=== PATIENT | male | born 1960 | race Caucasian/White ===

== ENCOUNTER 2018-06-28 02:41 | Emergency (ER) | payer SELFPAY ==
[2018-06-28 02:42] VITALS: PULSE 98
--- NOTE | 2018-06-28 04:11 | ED PDOC ---
Lower Extremity Pain/Injury Time Seen by Provider: 06/28/18 03:02 Chief Complaint (Nursing): Lower Extremity Problem/Injury Chief Complaint (Provider): knee pain History Per: Patient History/Exam Limitations: no limitations Onset/Duration Of Symptoms: Days Current Symptoms Are (Timing): Still Present Additional Complaint(s): 57 y/o male brought in by EMS for evaluation of bilateral knee pain. 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 Denies new injury, numbness/weakness lower extremities, limitation of movement. No medication taken for relief today Past Medical History Reviewed: Historical Data, Nursing Documentation, Vital Signs Vital Signs: Last Vital Signs Temp 98.3 F 06/28/18 02:44 Pulse 57 L 06/28/18 02:44 Resp 17 06/28/18 02:44 BP 103/72 06/28/18 02:44 Pulse Ox 95 06/28/18 02:44 - Medical History PMH: Arthritis, Diabetes, HTN Denies: Atrial Fibrillation, Chronic Kidney Disease - Family History Family History: States: Unknown Family Hx - Immunization History Hx Tetanus Toxoid Vaccination: No Hx Influenza Vaccination: No Hx Pneumococcal Vaccination: No - Home Medications Home Medications: Ambulatory Orders Medication Instructions Recorded Glipizide 2.5 mg PO BID 02/05/14 Lisinopril 2.5 mg PO DAILY 02/05/14 Metformin 1,000 mg PO BID 02/05/14 Metoprolol 12.5 mg PO DAILY 02/05/14 Amiodarone [Cordarone] 200 mg PO BID #60 tab 05/13/14 Diltiazem Hydrochloride [Cardizem 240 mg PO DAILY #30 c24 05/13/14 Cd] Omeprazole 40 mg PO DAILY #30 ecc 05/13/14 traMADol/Acetaminophen [Ultracet 1 tab PO Q6H PRN #60 tab 05/13/14 325 MG-37.5 MG] Ibuprofen [Motrin Tab] 1 tab PO Q6 PRN #20 tab 06/28/18 - Allergies Allergies/Adverse Reactions: Allergies Allergy/AdvReac Type Severity Reaction Status Date / Time No Known Allergies Allergy Verified 06/28/18 02:46 Review of Systems ROS Statement: Except As Marked, All Systems Reviewed And Found Negative Musculoskeletal: Positive for: Leg Pain Physical Exam - Reviewed Nursing Documentation Reviewed: Yes Vital Signs Reviewed: Yes - Physical Exam Appears: Positive for: Well, Non-toxic, No Acute Distress Head Exam: Positive for: ATRAUMATIC, NORMAL INSPECTION, NORMOCEPHALIC Skin: Positive for: Normal Color Eye Exam: Positive for: Normal appearance ENT: Positive for: Normal ENT Inspection Cardiovascular/Chest: Positive for: Regular Rate, Rhythm Respiratory: Positive for: Normal Breath Sounds Gastrointestinal/Abdominal: Positive for: Normal Exam Back: Positive for: Normal Inspection Extremity: Positive for: Normal ROM Neurologic/Psych: Positive for: Alert, Oriented (x3) - ECG O2 Sat by Pulse Oximetry: 95 Disposition - Clinical Impression Clinical Impression: Knee pain, bilateral - Patient ED Disposition Is Patient to be Admitted: No Counseled Patient/Family Regarding: Diagnosis, Need For Followup, Rx Given - Disposition Referrals: [facility] [Outside] Disposition: Routine/Home Disposition Time: 20:41 Condition: IMPROVED Prescriptions: Ibuprofen [Motrin Tab] 1 tab PO Q6 PRN #20 tab PRN Reason: Pain, Moderate (4-7) Instructions: Knee Pain
[2018-06-28 07:51] VITALS: BP 100/72; PULSE 105; RESP 16; TEMP 97.9
[2018-06-28 20:41] VITALS: O2SAT 95
== END 2018-06-28 06:45 | disposition home or self-care (01) ==
LOC: H.ER 02:41
DX: M25.561 Pain in right knee (principal); M25.562 Pain in left knee; E11.9 Type 2 diabetes mellitus without complications; I10 Essential (primary) hypertension; Z79.84 Long term (current) use of oral hypoglycemic drugs